=== PATIENT | female | born 1995 | race Two or more races ===

== ENCOUNTER 2022-10-21 22:43 | Emergency (ER) | payer MEDICAID, OTHER ==
[~2022-10-21] VITALS: Ht 157.5 cm; Wt 109.8 kg
[2022-10-22 00:19] VITALS: BP 142/91; RESP 18; TEMP 99.4; O2SAT 96
[2022-10-22 01:50] VITALS: PULSE 111
[2022-10-22] MEDS ORDERED: CLINDAMYCIN HCL 150 MG CAP PO ONE (02:00)
[2022-10-22] MEDS ORDERED: ceFAZolin 1GM/50ML 50 ML IV ONE (02:00)
[2022-10-22] MEDS ORDERED: BACDST PO (02:29)
[2022-10-22] MEDS ORDERED: IBU600T PO (02:29)
[2022-10-22] MEDS ORDERED: CLIN300C70 PO (02:29)
[2022-10-22] MEDS ORDERED: KETOROLAC TROMETH 60MG/2ML VIAL IM ONE (02:30)
[2022-10-22] MEDS ORDERED: HYDROcodone-ACET 5/325MG TAB PO ONE (02:30)
[2022-10-22] MEDS ORDERED: ceFAZolin IM 1GM/2.5ML STERILE WATER IM ONE (02:30)
== END 2022-10-22 04:18 | disposition home or self-care (01) ==
LOC: ER 22:43
DX: N39.0 Urinary tract infection, site not specified (principal); N76.4 Abscess of vulva; Z79.1 Long term (current) use of non-steroidal anti-inflammatories (NSAID); Z79.899 Other long term (current) drug therapy; Z88.0 Allergy status to penicillin
CPT/HCPCS: 93005; 96372; 99284; J0690; J1885; 81002